=== PATIENT | female | born 1985 | race Caucasian/White ===

== ENCOUNTER 2017-06-01 10:37 | Emergency (ER) | payer OTHER ==
[2017-06-01 11:39] VITALS: BP 131/70; PULSE 72; RESP 20; TEMP 97.1
[2017-06-01 11:49] LABS: Appearance,Urine Cloudy (Clear); Bacteria,Urine Rare /hpf; Bilirubin,Urine Negative (Negative); Glucose,Urine (UA) Negative (Negative); Ketones,Urine Negative (Negative); Leukocyte Esterase,Urine Moderate (Negative); Nitrite,Urine Negative (Negative); PH, Urine 5.5 (5.0-8.0); Particle Count 3662; Protein,Urine Negative (Negative); RBC,Urine 5 /hpf (0-5); Specific Gravity,Urine 1.016 (1.001-1.035); Squamous Epithelial Cell,Urine 6 /hpf (0-4); UA Billing (MACRO vs. MICRO) MICRO; Urobilinogen,Urine <2.0 mg/dL (<2.0); WBC,Urine 10 /hpf (0-5)
[2017-06-01] MEDS ORDERED: AZITHROMYCIN 500 MG TAB PO STA (12:16)
[2017-06-01] MEDS ORDERED: ONDANSETRON 4 MG ODT STARTER PACK 2 TAB BTL PO STA (12:16)
[2017-06-01] MEDS ORDERED: metroNIDAZOLE 500 MG TAB PO STA (12:16)
[2017-06-01] MEDS ORDERED: cefTRIAXone 250 MG VIAL IM STA (12:16)
--- NOTE | 2017-06-01 12:18 | ED ---
Recheck HPI - General Chief Complaint: Recheck/Abnormal Lab/Rx Stated Complaint: STD testing Time Seen by Provider: 06/01/17 11:10 Source: patient, RN notes reviewed, old records reviewed Mode of arrival: ambulatory Limitations: no limitations - History of Present Illness Initial Comments: 30-year-old female chief complaint of being told that she was exposed to gonorrhea. Patient wants to seek treatment. She reports she's had some vaginal discharge and occasional pain. She denies any urinary symptoms. She reports she has an IUD. Patient states that her she has a Mirena and it is currently . She needs follow up with her MAKEUP EDITOR to get a new one. Patient states that she has had no fever or chills. Denies any change in bowel movements. Patient is here with her boyfriend who is currently being treated for gonorrhea. - Related Data Home Medications Medication Instructions Recorded Confirmed No Known Home Medications [No 06/01/17 06/01/17 Known Home Medications] Allergies Allergy/AdvReac Type Severity Reaction Status Date / Time doxycycline Allergy Unknown Verified 06/01/17 11:16 tramadol Allergy Unknown Verified 06/01/17 11:16 Review of Systems ROS Statement: Those systems with pertinent positive or pertinent negative responses have been documented in the HPI. ROS Other: All systems not noted in ROS Statement are negative. Past Medical History Past Medical History: No Reported History History of Any Multi-Drug Resistant Organisms: None Reported Past Surgical History: Section, Cholecystectomy Past Psychological History: No Psychological Hx Reported Smoking Status: Current every day smoker Past Alcohol Use History: Occasional Past Drug Use History: None Reported General Exam Limitations: no limitations Course Vital Signs 06/01/17 06/01/17 10:42 11:38 Temperature 97.0 F L 97.1 F L Pulse Rate 73 72 Respiratory 17 20 Rate Blood Pressure 121/74 131/70 O2 Sat by Pulse 95 98 Oximetry Medical Decision Making - Medical Decision Making This is a 13-year-old female chief complaint STD testing and treatment. Patient 's boyfriend was diagnosed with gonorrhea as well as Trichomonas. Patient be treated with Rocephin, Flagyl, and azithromycin. Discussed close follow-up with MAKEUP EDITOR and primary care physician. Patient nurse's treatment plan will comply. Return parameters were discussed. Patient's urine test is negative. - Lab Data Lab Results 06/01/17 06/01/17 Range/Units 11:29 11:29 Urine Color Yellow Urine Appearance Cloudy H (Clear) Urine pH 5.5 (5.0-8.0) Ur Specific [place] 1.016 (1.001-1.035) Urine Protein Negative (Negative) Urine Glucose (UA) Negative (Negative) Urine Ketones Negative (Negative) Urine Blood Moderate H (Negative) Urine Nitrite Negative (Negative) Urine Bilirubin Negative (Negative) Urine Urobilinogen <2.0 (<2.0) mg/dL Ur Leukocyte Esterase Moderate H (Negative) Urine RBC 5 (0-5) /hpf Urine WBC 10 H (0-5) /hpf Ur Squamous Epith Cells 6 H (0-4) /hpf Urine Bacteria Rare H (None) /hpf Urine HCG, Qual Not Detected (Not Detectd) Disposition Clinical Impression: Exposure to STD Disposition: HOME SELF-CARE Condition: Good Instructions: Cervicitis (ED), Sexually Transmitted Diseases (ED) Additional Instructions: Patient advised to avoid sexual intercourse for the next 2 weeks as you can become reinfected. Follow-up with your primary care physician. Return to emergency department if any alarming signs or symptoms occur. Referrals: None,Stated [Primary Care Provider] - 1-2 days Ansley Morrison MD [STAFF PHYSICIAN] - 1-2 days Time of Disposition: 12:23
== END 2017-06-01 13:05 | disposition home or self-care (01) ==
LOC: EC 10:37
DX: Z20.2 Contact with and (suspected) exposure to infections with a predominantly sexual mode of transmission (principal); F17.200 Nicotine dependence, unspecified, uncomplicated; Z88.1 Allergy status to other antibiotic agents; Z88.6 Allergy status to analgesic agent
CPT/HCPCS: 87591; 87491; 81001; 81025; 87808; 87070; 99284; 96372; J0696; S0119; 87205